=== PATIENT | male | born 1945 | race Caucasian/White ===

== ENCOUNTER 2021-12-01 04:52 | Emergency (ER) | payer MEDICARE, SELFPAY ==
[2021-12-01 04:53] VITALS: BP 182/92; PULSE 80; RESP 18; TEMP 36.1; O2SAT 98; BMI 33.8
--- NOTE | 2021-12-01 05:06 | ART_ITS ---
Reason For Study: Leg pain Procedure A bilateral lower extremity continuous wave Doppler with analog waveform analysis and ankle brachial indexes. Left Segmental Pressures Left brachial= 175mmHg. Left posterior tibial artery = 201mmHg. Left dorsalis pedis artery = 192mmHg. The left dorsalis pedis waveforms are triphasic. The left posterior tibial artery waveforms are triphasic. Right Segmental Pressures Right brachial= 160mmHg. Right posterior tibial artery = 199mmHg. Right dorsalis pedis artery = 196mmHg. The right dorsalis pedis waveforms are triphasic. The right posterior tibial artery waveforms are triphasic. Indices The right ankle brachial index by the dorsalis pedis is 1.12. The right ankle brachial index by the posterior tibial artery is 1.14. The left ankle brachial index by the dorsalis pedis is 1.10. The left ankle brachial index by the posterior tibial artery is 1.15. VL/Ankle Brachial Index Interpretation Summary Normal right dorsalis pedis and posterior tibialis ankle-brachial indices at [facility] at 1.12 and 1.14 respectively with normal triphasic Doppler waveforms Normal left dorsalis pedis and posterior tibialis ankle-brachial indices of 1.1 and 1.15 respectively with normal triphasic Doppler waveforms Ordering Physician: Magalie Chavez Referring Physician: Fran Mata Performed By: Carolee Vaughn RVT
--- NOTE | 2021-12-01 05:09 | EDS_ITS ---
HPI History of Present Illness Chief Complaint: Lower Extremity Injury Informant: patient Onset/Context/Timing Onset: Days Timing: Intermittent Current Severity: Mild Maximum Severity: Moderate Narrative Narrative: Patient presents secondary to right leg pain. He states for the past 2 nights whenever he lies down in bed and elevates his feet he gets severe pain in his right leg. He points to the medial distal thigh and down into his lower leg. He states it will feel his feet are going to sleep. If he sits up and hangs his feet over the side of the bed the pain is significantly improved. To get up or walks the pain completely goes away. He denies any known history of peripheral vascular disease. [facility] Medical History Hypertension Toenail fungus Home Medications hydrochlorothiazide 50 mg tablet 50 mg PO DAILY 12/01/21 [History Last Taken Unknown] potassium chloride 10 mEq tablet,extended release 20 meq PO DAILY 12/01/21 [History Last Taken Unknown] terbinafine HCl 250 mg tablet 250 mg PO DAILY 12/01/21 [History Last Taken Unknown] Allergy/AdvReac Type Severity Reaction Status Date / Time No Known Allergies Allergy Verified 12/01/21 04:58 Social History Smoking Status: Never smoker ROS ROS ED Constitutional Constitutional ED: Denies chills or fever(s) Eyes Eyes: Denies discharge from eye(s) ENT ENT ED: Denies discharge from eye(s), rhinorrhea or sore throat Cardiovascular Cardiovascular: Denies chest pain or palpitations Respiratory/Chest Respiratory/Chest: Denies cough or dyspnea Gastrointestinal Gastrointestinal: Denies abdominal pain, diarrhea, nausea or vomiting Genitourinary Genitourinary ED: Denies dysuria Musculoskeletal Musculoskeletal: Reports extremity pain; Denies back pain Integumentary Denies Abrasions or rash Neurologic Neurologic: Reports paresthesias; Denies headache(s) or weakness Psychiatric Psychiatric: Denies anxiety or depression Allergic/Immunologic Allergic/Immunologic ED: Denies lip swelling or urticaria EXAM Physical Exam Const Vital Signs: 12/01/21 04:53 Temperature 97 F L Temperature Source Temporal Pulse Rate 80 Respiratory Rate 18 Blood Pressure 182/92 H Blood Pressure Mean 122 Pulse Ox 98 Oxygen Delivery Method Room Air Positive well nourished and well developed General Appearance ED: well developed HEENT Reports moist mucous membranes Eyes PERRL and EOMs intact bilaterally Chest Wall inspection of chest normal and palpation of chest normal Resp normal respiratory effort and clear to auscultation bilaterally Cardio regular rate and regular rhythm GI normal to inspection, nondistended, normoactive bowel sounds Extremity normal to inspection Extremity Narrative: No significant leg edema noted. No skin discoloration or lesions. Strong distal pulses as patient is currently sitting on side of bed with his feet hanging over the side. Good range of motion with no joint tenderness. Neuro oriented x3 and no sensory deficits noted Sensorium / Orientation: alert Motor Exam: strength 5/5 throughout Psych mental status grossly normal Skin no rashes or lesions noted MDM MDM MDM Narrative Medical decision making narrative: Patient gives symptoms of arterial leg disease. He needs ABIs to determine appropriate blood flow. He presents at 5 AM for evaluation. He is willing to wait here in the emergency room until ultrasound is available to scan his leg this morning. This will be signed out to oncoming physician for final disposition. Discharge Plan Triage Chief Complaint: Lower Extremity Injury ED Provider: Magalie Chavez Dx/Rx/DC Orders Prescriptions: No Action hydrochlorothiazide 50 mg tablet 50 mg PO DAILY Label Comments: TAKE 1 TABLET BY MOUTH EVERY DAY lamotrigine [Lamictal] 150 mg Tablet 150 mg PO DAILY potassium chloride 10 mEq tablet extended release 20 meq PO DAILY Label Comments: TAKE 2 TABLETS BY MOUTH DAILY WITH BREAKFAST. Primary Care Provider: Yonas Mata Referrals: Yonas Mata MD [Primary Care Provider] -
[2021-12-01 08:39] VITALS: PULSE 78; O2SAT 100
== END 2021-12-01 08:39 | disposition home or self-care (01) ==
PROVIDERS: Emergency Provider Emergency Medicine; PCP Family Medicine; Visit Provider Emergency Medicine
DX: M79.604 Pain in right leg (principal); R20.2 Paresthesia of skin; I10 Essential (primary) hypertension; Z79.899 Other long term (current) drug therapy
CPT/HCPCS: 93922; 99282